=== PATIENT | female | born 1985 | race African-American/Black ===

== ENCOUNTER 2021-09-15 03:16 | Emergency (ER) | payer OTHER ==
[2021-09-15 04:01] VITALS: BMI 38.6
[2021-09-15 04:17] LABS: BASO % 1.2 % (0-2.0); EOS % 3.4 % (0-4.5); HEMOGLOBIN 12.7 GM/dL (10.7-15.3); LYMPH % 50.7 % (8-40); MCH 32.2 pg (25.7-33.7); MCHC 34.4 g/dl (32.0-36.0); MEAN CELL VOLUME 93.7 fl (80-96); MONO % 10.3 % (3.8-10.2); NEUT % 34.4 % (42.8-82.8); PLATELET COUNT 231 10^3/uL (134-434); RBC 3.94 M/mm3 (3.60-5.2); RDW 13.7 % (11.6-15.6)
[2021-09-15 04:37] LABS: ALBUMIN 3.7 g/dl (3.4-5.0); BLOOD UREA NITROGEN 14.1 mg/dL (7-18)
[2021-09-15 04:40] LABS: CREATININE 0.8 mg/dL (0.55-1.3)
[2021-09-15 04:41] LABS: BILIRUBIN,TOTAL 0.2 mg/dL (0.2-1); TOT PROT 7.3 g/dl (6.4-8.2)
[2021-09-15 07:34] VITALS: BP 111/64; PULSE 74; TEMP 98.3
[2021-09-15] MEDS ORDERED: CIPROFLOXACIN 500 MG TABLET (RESTRICTED TO ID) PO ONE (08:23)
[2021-09-15] MEDS ORDERED: metroNIDAZOLE 500 MG TABLET PO ONE (08:23)
[2021-09-15] MEDS ORDERED: metroNIDAZOLE 250 MG TABLET ONE (08:26)
== END 2021-09-15 08:58 | disposition home or self-care (01) ==
LOC: JER 03:16
DX: R19.00 Intra-abdominal and pelvic swelling, mass and lump, unspecified site (principal)
CPT/HCPCS: 36415; 74177-TC; 80053; 83690; 84703; 85025; 99285-25; Q9967

== ENCOUNTER 2021-11-22 09:59 | Emergency (ER) | payer OTHER ==
[2021-11-22 10:03] VITALS: BP 107/68; PULSE 71; TEMP 98.5; BMI 35.3
[2021-11-22] MEDS ORDERED: SODIUM CHLORIDE 1,000 ML IV STA (11:04)
[2021-11-22 11:25] LABS: HCG,QUALITATIVE URINE Positive
[2021-11-22 11:28] LABS: EPI CELLS 16 /uL (0-25.1); HYALINE CASTS 1 /uL (0-3.1); URINE APPEARANCE Error; URINE BACTERIA 216 /uL (0-1359); URINE BILIRUBIN NEGATIVE (NEGATIVE); URINE COLOR YELLOW; URINE GLUCOSE (UA) NEGATIVE (NEGATIVE); URINE KETONE NEGATIVE (NEGATIVE); URINE LEUK ESTERASE NEGATIVE (NEGATIVE); URINE NITRITE NEGATIVE (NEGATIVE); URINE PROTEIN NEGATIVE (NEGATIVE); URINE RBC 12 /uL (0-23.9); URINE UROBILINOGEN 0.2 mg/dL (0.2-1.0); URINE WBC 14 /uL (0-25.8)
[2021-11-22 11:39] LABS: BASO % 0.9 % (0-2.0); HEMATOCRIT 35.6 % (32.4-45.2); HEMOGLOBIN 12.3 GM/dL (10.7-15.3); LYMPH % 54.8 % (8-40); MCH 32.3 pg (25.7-33.7); MCHC 34.7 g/dl (32.0-36.0); MEAN CELL VOLUME 93.1 fl (80-96); MEAN PLT VOLUME 8.9 fl (7.5-11.1); MONO % 10.9 % (3.8-10.2); NEUT % 29.4 % (42.8-82.8); PLATELET COUNT 263 10^3/uL (134-434); RBC 3.82 M/mm3 (3.60-5.2); RDW 13.3 % (11.6-15.6); WHITE BLOOD COUNT 5.2 K/mm3 (4.0-10.0)
[2021-11-22 11:47] LABS: INR 0.96 (0.83-1.09)
[2021-11-22 11:50] LABS: ACTIVATED PTT 22.3 SECONDS (25.2-36.5)
[2021-11-22 11:55] LABS: CALCIUM 8.9 mg/dL (8.5-10.1)
[2021-11-22 11:56] LABS: ALBUMIN 3.9 g/dl (3.4-5.0)
[2021-11-22 11:57] LABS: BLOOD UREA NITROGEN 8.1 mg/dL (7-18)
[2021-11-22 12:00] LABS: CREATININE 0.7 mg/dL (0.55-1.3)
[2021-11-22 12:01] LABS: BILIRUBIN,TOTAL 0.4 mg/dL (0.2-1)
[2021-11-22 12:02] LABS: TOT PROT 7.5 g/dl (6.4-8.2)
== END 2021-11-22 13:35 | disposition home or self-care (01) ==
LOC: JER 09:59
PROC: 3E0337Z Introduction of Electrolytic and Water Balance Substance into Peripheral Vein, Percutaneous Approach (ICD-10-PCS; principal; 2021-11-22)
DX: O20.8 Other hemorrhage in early pregnancy (principal)
CPT/HCPCS: 36415; 76817-TC; 80053; 81003; 84702; 84703; 85025; 85610; 85730; 86850; 86900; 86901; 87086; 99284-25

== ENCOUNTER 2023-09-22 14:30 | Emergency (ER) | payer OTHER ==
[2023-09-22 14:41] VITALS: BP 121/84; PULSE 73; RESP 20; TEMP 98.3; BMI 35.6
[2023-09-22] MEDS: ACETAMINOPHEN 500 MG TABLET (FP) PO ONE (15:39)
[2023-09-22] MEDS ORDERED: ACETAMINOPHEN 500 MG TABLET (FP) ONE (15:40)
[2023-09-22] MEDS: ALBUTEROL SO4 2.5/IPRATROPIUM 0.5 INH SOL 3 ML VIAL.NEB. NEB ONE (16:26)
== END 2023-09-22 16:51 | disposition home or self-care (01) ==
LOC: JERFT 14:30 → JER 14:30 → JERFT 16:51
PROC: 3E0F7GC Introduction of Other Therapeutic Substance into Respiratory Tract, Via Natural or Artificial Opening (ICD-10-PCS; principal; 2023-09-22)
DX: R05.9 Cough, unspecified (principal); J06.9 Acute upper respiratory infection, unspecified; B97.89 Other viral agents as the cause of diseases classified elsewhere; R09.81 Nasal congestion; M79.10 Myalgia, unspecified site; J02.9 Acute pharyngitis, unspecified; R50.9 Fever, unspecified; R53.1 Weakness; R51.9 Headache, unspecified; Z20.822 Contact with and (suspected) exposure to COVID-19
CPT/HCPCS: 0241U-QW; 71046-TC-FY; 94640; 99284-25

== ENCOUNTER 2023-12-16 13:43 | Emergency (ER) | payer OTHER ==
[2023-12-16 13:47] VITALS: BP 156/93; PULSE 77; RESP 16; TEMP 97.1; BMI 38.6
[2023-12-16] MEDS ORDERED: IBUPROFEN 600 MG TABLET (FP) PO ONE (14:08)
[2023-12-16] MEDS: IBUPROFEN 600 MG TABLET (FP) PO ONE (14:10)
== END 2023-12-16 15:45 | disposition home or self-care (01) ==
LOC: JERFT 13:43
DX: M25.571 Pain in right ankle and joints of right foot (principal); M25.572 Pain in left ankle and joints of left foot; W10.8XXA Fall (on) (from) other stairs and steps, initial encounter
CPT/HCPCS: 73610-TC-LT-FY; 73610-TC-RT-FY; 73630-TC-LT; 73630-TC-RT-FY; 99284-25

== ENCOUNTER 2024-03-29 23:20 | Emergency (ER) | payer OTHER ==
[2024-03-29 23:25] VITALS: BP 146/91; PULSE 92; RESP 18; TEMP 98.1; BMI 36.8
[2024-03-30] MEDS ORDERED: IBUPROFEN 200 MG TABLET PO ONE (01:03)
[2024-03-30] MEDS ORDERED: ACETAMINOPHEN 325 MG TABLET (FP) ONE (01:11)
[2024-03-30] MEDS ORDERED: IBUPROFEN 400 MG TABLET (FP) PO ONE (01:11)
[2024-03-30] MEDS: ACETAMINOPHEN 325 MG TABLET (FP) PO ONE (01:48)
[2024-03-30] MEDS: IBUPROFEN 400 MG TABLET (FP) PO ONE (01:49)
== END 2024-03-30 01:49 | disposition home or self-care (01) ==
LOC: JER 23:20
DX: R51.9 Headache, unspecified (principal); M54.2 Cervicalgia; V49.50XA Passenger injured in collision with unspecified motor vehicles in traffic accident, initial encounter; Y92.410 Unspecified street and highway as the place of occurrence of the external cause
CPT/HCPCS: 99283-25